=== PATIENT | female | born 1995 | race African-American/Black ===

== ENCOUNTER 2016-12-03 18:17 | Emergency (ER) | payer OTHER ==
[~2016-12-03] VITALS: Ht 170.2 cm; Wt 107.5 kg
[2016-12-03 18:19] VITALS: Ht 170.2 cm; Wt 107.5 kg
[2016-12-03] MEDS ORDERED: CYCL-319 PO (19:37)
[2016-12-03] MEDS ORDERED: HYDR-906 PO (19:37)
[2016-12-03] MEDS ORDERED: IBUP-1542 PO (19:37)
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
== END 2016-12-03 20:00 | disposition home or self-care (01) ==
LOC: FTE 18:17
DX: S39.012A Strain of muscle, fascia and tendon of lower back, initial encounter (principal); V49.40XA Driver injured in collision with unspecified motor vehicles in traffic accident, initial encounter
CPT/HCPCS: 99284